=== PATIENT | female | born 1965 | race Caucasian/White ===

== ENCOUNTER → 2016-12-20 | Outpatient (CLI) | payer OTHER ==
[~2016-12-20] VITALS: Ht 167.6 cm; Wt 106.6 kg
[~2016-12-20] MED LIST: ADULT LOW DOSE81 MG PO; AMBIEN 10 MG TA10 MG PO; AMBIEN 5 MG TABL5 M1 PO; BACLOFEN 10 MG10 MG PO; CO Q-1010 MG PO; DILAUDID 4 MG TA4 M1 PO; FISHOIL PO; FLEXERIL PO; FLUOXETINE HCL20 M1 PO; IBUPROFEN200 M2 PO; LYRICA 50 MG50 MG PO; METHADONE HCL 110 M1 GT; METHADONE HCL 110 M1 PO; MULTIVITAMINS; OXYCODONE-ACET1 EAC2 PO; PROZAC 20 MG20 M1 PO; PROZAC 20 MG20 MG PO; TEGRETOL XR100 MG PO; VITAMIN D 5050000 I1 PO; VITAMIN D1000 UNI1 PO; VITAMINC500 PO
--- NOTE | ~2016-12-20 | HPC ---
[facility] [place] [address] PAIN MANAGEMENT CONSULTATION Name: VERONICA DOUGLAS Room #: REG GEOVANI Simpson.#: [id number] Admission: 12/20/16 Attend Phys: Pranav Wilkinson MD Discharge: Date of : 69 Report #: [id number] THIS REPORT FOR: //name// CC: Zohaib Wilkinson DATE OF SERVICE: 12/20/2016 Followup visit for left arm pain, exacerbation of chronic complex regional pain syndrome type 1. The patient presents back to the pain clinic today one week after her last visit crying. She has had 10/10 pain going off of methadone. Little did we realize, to relieve it, providing her even at low dose. This is the worst I have seen her in pain for some time back to the date when her periodic crisis were developed. She knows of no other specific injuries other than hitting her shoulder, which may have triggered her increased and sympathetic symptoms. Currently, she scores her pain as a 9-10, burning, radiates through the left arm all the way up through the shoulder. The arm is read. It is in a [id number] position. PHYSICAL EXAMINATION: VITAL SIGNS: Blood pressure 131/84, heart rate 98. BMI 37.9. GENERAL: The patient is anxious, crying and tearful. EXTREMITIES: Examination of the left arm reveals diffuse allodynia from the shoulder down into the fingers. The arm is cool to the touch. It is red and irritated throughout. 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 The hand is held in a claw position. IMPRESSION: 1. Complex regional pain syndrome type 1, with recent exacerbation. 2. Management of high-risk medication. 3. Depression and anxiety. PLAN: 1. Renew methadone. She has been on 10 mg b.i.d. in the past. I am starting her back on that dose today. She should be able to go back on it without the titration, given her previous use. 2. Return to the pain clinic for sympathetic nerve block. I will perform a left stellate ganglion block under fluoroscopic guidance in another day or two if she is not improving. [facility] [address] [place] [address] PAIN MANAGEMENT CONSULTATION Name: VERONICA DUOGLAS Room #: REG [facility] Calvin.#: [id number] Admission: 12/20/16 Attend Phys: Pranav Wilkinson MD Discharge: Date of : 69 Report #: [id number] Followup visit planned in 48 hours pending insurance authorization. By: [id number] Pranav Wilkinson MD /nt
== END | disposition home or self-care (01) ==
LOC: PAIN 07:05
DX: G90.50 Complex regional pain syndrome I, unspecified (principal); F32.9 Major depressive disorder, single episode, unspecified; F41.9 Anxiety disorder, unspecified

== ENCOUNTER → 2016-12-30 | Outpatient (CLI) | payer OTHER ==
[~2016-12-30] VITALS: Ht 167.6 cm; Wt 108.0 kg
[~2016-12-30] MED LIST changes: +HYDROCODON-ACE1 EAC7 PO
--- NOTE | ~2016-12-30 | P ---
[facility] [place] [address] [place] [address] PROCEDURE REPORT Name: VERONICA DOUGLAS Room #: REG KELLYAdarsh Gill#: [id number] Admission: 12/30/16 Attend Phys: Brock Arora DO Discharge: Date of : 69 Report #: [id number] THIS REPORT FOR: //name// CC: Zohaib Arora HISTORY OF PRESENT ILLNESS: The patient is a 51-year-old female with long treated by Dr. Pranav Wilkinson for CRPS left upper extremity neuropathic pain requiring complex medication management. Last seen by Dr. Wilkinson 10 days ago 12/20/2016. She was scheduled for left stellate ganglion block today. She presents to pain clinic today for this injection. She notes medication changes were not afforded significant improvement. I believe she is taking methadone 10 mg b.i.d. She is requesting to go back to her hydromorphone. I suggested that we will do the injection today and have her follow up with Dr. Pranav Wilkinson for medication management. If we changed medicines and do the block we would not know which gives her better relief. The patient rates her subjective pain score high and vital signs are stable as noted in the EMR. Does have hyperpathia, allodynia left upper extremity. ASSESSMENT: CRPS left upper extremity, neuropathic pain requiring complex medication management. PROCEDURE: Left stellate ganglion block under fluoroscopy. PROCEDURE NOTE: After written informed consent was obtained, the patient taken to fluoroscopy suite, placed in supine position. Skin overlying the left-sided neck was cleansed with ChloraPrep. Skin wheal with Xylocaine was raised. A 20-gauge stellate ganglion needle was placed to contact the anterior portion of the left C6 vertebral body. Negative aspiration was accomplished, 1 mL of Omnipaque was injected, which showed spread within the anterior to [place] tubercle. This was followed with 4 mL of 0.5% preservative-free bupivacaine plus 4 mL of 1-1/2% preservative-free Xylocaine with 1:200,000 epinephrine +4 mg of Decadron. [place] removed. The area was cleansed, Band-Aids applied. The patient monitored for an appropriate period of time, developed on the left side. Discharged in good and stable condition and follow up with Dr. Pranav Wilkinson 3 days. The patient was cautioned about aspiration for the next several hours due to partial denervation of the epiglottis. By: [id number] Brock Arora DO /nt
[2016-12-30 09:49] VITALS: BP 135/76
== END ==
LOC: PAIN 06:54
DX: G90.512 Complex regional pain syndrome I of left upper limb (principal); R20.8 Other disturbances of skin sensation; F10.21 Alcohol dependence, in remission

== ENCOUNTER → 2017-01-02 | Outpatient (CLI) | payer OTHER ==
[~2017-01-02] VITALS: Ht 167.6 cm; Wt 109.3 kg
--- NOTE | ~2017-01-02 | HPC ---
[facility] [place] [address] [place] [address] PAIN MANAGEMENT CONSULTATION Name: VERONICA DOUGLAS Room #: REG GEOVANI MAnniaOsvaldo.#: [id number] Admission: 01/02/17 Attend Phys: Pranav Wilkinson MD Discharge: Date of : 69 Report #: [id number] THIS REPORT FOR: //name// CC: Zohaib Wilkinson DATE OF SERVICE: 01/02/2017 Follow up visit for chronic regional pain syndrome. The patient returns to pain clinic in followup. I was to provide her with a stellate ganglion block, but unfortunately was unable to do so in the time frame that she was hopeful for and she was scheduled with my partner, Dr. Arora on Monday. He performed an excellent block, I looked at the x-ray films and the medication was deposited clearly on the transverse process of C6 on the left. Unfortunately, it did not give much change in her pain. She did not develop a Sandi's syndrome. She returns to pain clinic today once again with severe pain. The arm is red, inflamed, and hyperpathic. There is allodynia, she hold her hand in a claw position. Pain extends all the way from the shoulder to the hand in the classic shoulder hand distribution of complex regional pain syndrome. She holds it in a touch me not physician. She is tearful today due to severity of the pain. She is not currently on a neuropathic pain medicine. She has in the past been on medications, which have been ineffective. I decided today to provide her with some samples of Lyrica 50 mg t.i.d., increasing to 75 mg t.i.d. as we attempt to bring this pain under control. She will take this in combination with hydrocodone 5/325, which we have substituted in place of oxycodone, which causes headaches. She brought in her prescription for that medication today and we . PHYSICAL EXAMINATION: As described above. She is anxious. Blood pressure is 122/87, heart rate 73. Severe sympathetic changes are noted throughout the entire left upper extremity. IMPRESSION: Complex regional pain syndrome type 1, left upper extremity. PLAN: Medication as prescribed above and followup visit for repeat stellate ganglion block once preauthorization was achieved, we will try to get her back as soon as possible. By: [id number] Pranav Wilkinson MD /nt
[2017-01-02 09:56] VITALS: BP 122/87
== END | disposition home or self-care (01) ==
LOC: PAIN 06:39
DX: G90.522 Complex regional pain syndrome I of left lower limb (principal)

== ENCOUNTER → 2017-01-05 | Outpatient (CLI) | payer OTHER ==
[~2017-01-05] VITALS: Ht 167.6 cm; Wt 109.4 kg
--- NOTE | ~2017-01-05 | HPC ---
[facility] [address] [place] [address] PAIN MANAGEMENT CONSULTATION Name: VERONICA DOUGLAS Room #: REG GEOVANI Calvin.#: [id number] Admission: 01/05/17 Attend Phys: Pranav Wilkinson MD Discharge: Date of : 69 Report #: [id number] THIS REPORT FOR: //name// CC: Zohaib Wilkinson DATE OF SERVICE: 01/05/2017 Followup visit for complex regional pain syndrome, left upper extremity. The patient returns to pain clinic today in followup for another stellate ganglion block. She did not get much of a Sandi syndrome with her last injection. Today, I told her that we would repeat the injection with a higher volume of local anesthetic once again under x-ray guidance and I would place the needle in the area of C7 rather than C6. I looked at Dr. Arora's films from his previous injection and our hope is that we can interrupt the sympathetic pain syndrome. I have started her on Lyrica. We are going to titrate that dose up to 225 mg. Reasons for doing so were explained once again and she has samples to do so. I have coupons for her to be able to get a dose of medication at a reasonable rate if the medication helps in addition to her injections. On physical exam, her effect is less anxious today. She was tearful on a couple of occasions. Her arm looks awful. She has hyperpathia. It is purplish in color and she has allodynia from the shoulder to the hand. She holds her hand in a claw position. Her blood pressure is 123/57, heart rate 72. BMI is 38.9. IMPRESSION: 1. Complex regional pain syndrome type 1, left upper extremity, severe. 2. Management of high risk medication. PROCEDURE: Left stellate ganglion block under fluoroscopic guidance. After written consent was obtained, she was taken to the fluoroscopic suite, placed in supine position. Skin over the left neck was prepped with ChloraPrep. Using C-arm guidance, I advanced a 22-gauge needle to contact the C7 transverse process laterally. AP and lateral views were used to confirm location. Aspiration was negative. I injected 2 mL of Omnipaque demonstrating good spread in the cephalad direction and some extension down towards T1. We did not get quite as much as caudad distribution of dye as I had hoped. I took an oblique view as well to confirm that the dye was located anterior to the spinous process. Then I injected a total of 9 mL of solution containing 50/50 make mixture of 0.5% bupivacaine mixed with 1% lidocaine. 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 Arm looked a little bit better in recovery room, but we could [address] [address] PAIN MANAGEMENT CONSULTATION Name: VERONICA DOUGLAS Room #: REG GEOVANI Gill#: [id number] Admission: 01/05/17 Attend Phys: Pranav Wilkinson MD Discharge: Date of : 69 Report #: [id number] not monitor temperatures unfortunately to note if there was a rise. She still had a pain score of about 8 at discharge. We are hopeful that she will see improvement ongoing with both the Lyrica and the injection. I would like her to come back in a week or so for another injection if she sees some improvement with this one. Otherwise, we will stick with Lyrica. By: 1101 [id number] Pranav Wilkinson MD /nt
[2017-01-05 14:04] VITALS: BP 123/57
== END ==
LOC: PAIN 07:10
DX: G90.522 Complex regional pain syndrome I of left lower limb (principal)

== ENCOUNTER → 2017-02-06 | Outpatient (CLI) | payer OTHER ==
[~2017-02-06] VITALS: Ht 170.2 cm; Wt 111.6 kg
[~2017-02-06] MED LIST changes: +DILAUDID4 MG PO; +METHADONE HCL5 MG PO
--- NOTE | ~2017-02-06 | HPC ---
[facility] [place] [address] [place] [address] PAIN MANAGEMENT CONSULTATION Name: VERONICA DOUGLAS Room #: REG GEOVANI MBeka.#: [id number] Admission: 02/06/17 Attend Phys: Pranav Wilkinson MD Discharge: Date of : 69 Report #: [id number] THIS REPORT FOR: //name// CC: Zohaib Wilkinson DATE OF SERVICE: 02/06/2017 Followup visit for complex regional pain syndrome type 1. The patient returns to pain clinic today in tears, the pain remains severe. She has had two stellate ganglion blocks which provided lasting relief. Those were performed under fluoroscopic guidance were felt to be successful based upon findings of Sandi's syndrome. She has had chronic pain well documented throughout this record and I have been taking care for about 20 years. In addition to methadone, which we used for years at 10 mg t.i.d. and hydromorphone 4 mg t.i.d., which seem to be successful. Her only other successful treatment over time was use of lidocaine infusion. I have records that date back into the early 1999s, show that when infuse IV lidocaine, she would develop a substantial improvement for a prolonged period of time. The literature is full of evidence of lidocaine infusions helping individual patients, but it is certainly not a mainline treatment. Because of high dose of lidocaine that was required, I eventually decided against continuing it. We were also seeing decreasing efficacy. I am at a point now where I think that we may need to proceed given her reliance on opioid medication for day to day functioning. Her pain seems to be getting worse and not better over the last several months. Today, she scores her pain as a 10/10, all weather changes are affecting her pain. Pain has really been worse since she fell in November 2016, landing on her left side on concrete. CURRENT MEDICATIONS: Methadone 5 mg 3 times a day, hydrocodone 5/325 q. 6h., zolpidem, Prozac, baclofen, aspirin, and vitamin D. ALLERGIES: SERTRALINE. PHYSICAL EXAMINATION: She is in tears today. Blood pressure 117/75 and heart rate 68. BMI 38.5. Examination of the neck reveals tenderness across the scar from previous neck surgery, spinal cord stimulator placed years ago has been removed. Examination of the shoulder reveals reduced range of motion. She has some difficulty with extension at the elbow. 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 The entire arm is ruborous and red in color. She has diffuse allodynia mottling. Pictures were taken of the arm for the record. IMPRESSION: [facility] [address] [place] [address] PAIN MANAGEMENT CONSULTATION Name: VERONICA DOUGLAS Room #: REG GEOVANI Gill#: [id number] Admission: 02/06/17 Attend Phys: Pranav Wilkinson MD Discharge: Date of : 69 Report #: [id number] 1. Severe complex regional pain syndrome type 1. 2. Management of intractable pain with high risk medication under terms of an opioid agreement. 3. Depression, situational. PLAN: 1. She does not want any more stellate ganglion blocks as they are very expensive and they did not provide lasting relief. I agree completely. I still think it was an appropriate and reasonable step. 2. We discussed lidocaine infusion and willing to perform one if we can get the approval of her insurance company. I suspect that it will be denied due to it is outside of normal care, but we have history that shows that it was beneficial and I will do ____ if necessary. 3. Continue medications under terms of an opioid agreement. RECOMMENDATIONS: Today, I reviewed important issues related to the use of opioids and other potent, centrally-acting medications for the treatment of pain. Rationale for the use of medication is to reduce pain and improve daily activities and function. These activities, individualized for each patient, include simple activities of daily living, improvement in work capabilities, increased involvement in family and other social activities. Improvement in psychosocial elements of chronic pain were discussed in a broader conversation of wellness that included nonpharmacologic measures to manage pain, suffering and efforts to enhance well being. Remaining as physically active as possible for age and ability plays a tremendous role in the management of chronic pain. This was encouraged. We reviewed potential medication side effects, toxicities and drug interactions, employing strategies to manage problems identified. Pain medications have potential side effects, and patients should exercise caution when operating machinery or driving. We discussed in detail the dramatic increase in the Emergency Room visits, hospitalizations and deaths related to misuse and diversion of prescription pain medications in [place]. This opioid crisis in [place] requires both physicians and patients alike to safely use all medications. Safeguarding of medications by keeping them safely locked up or out of reach of others is a critical patient responsibility to ensure that medications are not diverted to others. We discussed the Center for Disease Control (CDC) guidelines for safe use of opioids and the efforts to standardize opioid prescribing to prevent complications. These include guidelines which we strive to meet. They include the standardization of various opioids to morphine milligram equivalents (MME) and also stress the use of the lowest effective dose. Efforts to remain within daily maximum dosing guidelines will also be of focus of treatment. Addiction versus therapeutic use of medication includes routine followup, single prescriber, single pharmacy and the use of random drug screens and other tools to ensure safe prescribing. A signed agreement outlying these issues has been reviewed and remains on the patient chart. Prescriptions were provided today under terms of that agreement, and followup [facility] [address] [place] [address] PAIN MANAGEMENT CONSULTATION Name: VERONICA DOUGLAS Room #: REG CLAdarsh M.Osvaldo.#: [id number] Admission: 02/06/17 Attend Phys: Pranav Wilkinson MD Discharge: Date of : 69 Report #: [id number] for her is planned in 3 months. Followup visit planned in 3 months for medication management or if we can get the approval of her insurance company for lidocaine infusion, I will resume lidocaine infusion with additional boluses. I would be willing to provide her with up to 800-1000 mg of lidocaine over a 6-hour period in the clinic and closely monitor to make sure that there are no side effects. <ELECTRONICALLY SIGNED> By: Pranav Wilkinson MD 02/23/17 1034 [id number] Pranav Wilkinson MD /nt
[2017-02-06 09:18] VITALS: BP 112/75
== END ==
LOC: PAIN 06:55
DX: G90.50 Complex regional pain syndrome I, unspecified (principal); F32.9 Major depressive disorder, single episode, unspecified; Z79.899 Other long term (current) drug therapy; Z88.8 Allergy status to other drugs, medicaments and biological substances

== ENCOUNTER → 2017-03-20 | Outpatient (CLI) | payer OTHER ==
[~2017-03-20] VITALS: Ht 167.6 cm; Wt 108.4 kg
--- NOTE | ~2017-03-20 | HPC ---
[facility] [address] [place] [address] PAIN MANAGEMENT CONSULTATION Name: VERONICA DOUGLAS Room #: REG GEOVANI Calvin.#: [id number] Admission: 03/20/17 Attend Phys: Pranav Wilkinson MD Discharge: Date of : 69 Report #: [id number] THIS REPORT FOR: //name// CC: Zohaib Wilkinson DATE OF SERVICE: 03/20/2017 Followup visit for complex regional pain syndrome, type 1, left upper extremity. The patient has returned to the pain clinic today for a lidocaine infusion. She has been out of control with pain over the course of the last 4 to 6 months despite the use of medications, methadone and hydrocodone. The record will reflect that we first met her we performed lidocaine infusions with good success. We stopped doing them after a period of time and there were also not reimbursable. Also, felt that there were other psychosocial factors that were worsening her pain and we tried to approach the pain from that direction. She really did pretty well over the course of several years, but since the pain has worsened and she has been in our office in tears on more than one occasion, I have elected to pursue another lidocaine infusion and have had it approved and agreed to by the insurance company. We have done this typically by providing a loading dose of 200 mg of lidocaine over about 20 to 30 minutes and then running an infusion of 60 mg of lidocaine per hour for 4 to 6 hours. During this time she has been in the clinic, resting in a lounge chair under continuous monitoring with EKG and pulse oximetry, there have been no untoward effects. Today, she presents to the pain clinic saying that her pain is a 10/10. She holds her hand in a claw-like contracture. She has light touch allodynia throughout the arm ____ and red all the way up into the deltoid. She has restricted movement in the elbow and wrist as well. VITAL SIGNS: Blood pressure is 119/65, heart rate is 66 and BMI is 38.6. IMPRESSION: Complex regional pain syndrome, type 1. PLAN: Lidocaine infusion over 6 hours. An IV was started at 07:45 in the morning. We bolused her at that point in time with 20 mL of lidocaine. She was then placed on the infusion which ran continuously through noon. Pain score had drop from a 10 to a 5. There were marked changes in her hand. She was able to open her fingers, but still had some light touch allodynia; we elected therefore to rerun the infusion for an additional 2 hours until 2:00 in the afternoon. At that time, her pain score was down to 2-1/2 to 3. 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 Light touch allodynia was gone. The hand appeared normal, almost very similar to the right hand. [address] [address] PAIN MANAGEMENT CONSULTATION Name: VERONICA DOUGLAS Room #: REG [facility] Patrice.Osvaldo.#: [id number] Admission: 03/20/17 Attend Phys: Pranav Wilkinson MD Discharge: Date of : 69 Report #: [id number] She was then observed in the clinic for about 30 minutes after the IV was removed. She was able to walk, fine motor skills were performed and there was no slurring of speech. We elected then to discharge her to her family and she is to call back in a week or two to give us a feedback. We may consider repeating the injection in 1 month. We have done these in the past in sequence oftentimes providing a longer duration of response. We will see how this works, but clearly today we have interrupted the pain cycle in the sympathetic innervation. By: [id number] Pranav Wilkinson MD /nt
[2017-03-20 07:26] VITALS: BP 119/65
== END ==
LOC: PAIN 06:46
DX: G90.512 Complex regional pain syndrome I of left upper limb (principal)

== ENCOUNTER → 2017-04-17 | Outpatient (CLI) | payer OTHER ==
[~2017-04-17] VITALS: Ht 170.2 cm; Wt 109.8 kg
[2017-04-17 08:21] VITALS: BP 121/73
== END | disposition home or self-care (01) ==
LOC: PAIN 06:32
DX: G90.512 Complex regional pain syndrome I of left upper limb (principal); Z79.82 Long term (current) use of aspirin; Z88.8 Allergy status to other drugs, medicaments and biological substances; Z98.890 Other specified postprocedural states

== ENCOUNTER → 2018-01-04 | Outpatient (CLI) | payer OTHER ==
[~2018-01-04] VITALS: Ht 170.2 cm; Wt 113.1 kg
[~2018-01-04] MED LIST changes: +ALEVE220 MG PO; +BACLOFEN 10MG T10 MG PO; +FISH OIL 1,001000 M2 PO; +NON-ASPIRIN EX500 M1 PO; +PENICILLIN V P500 MG PO; +PROBIOTIC1 EAC1 PO; +UNICOMPLEX M TA1 TA1 PO
--- NOTE | ~2018-01-04 | HPC ---
[facility] [address] [place] [address] PAIN MANAGEMENT CONSULTATION Name: VERONICA DOUGLAS Room #: REG GEOVANI M.R.#: [id number] Admission: 01/04/18 Attend Phys: Pranav Wilkinson MD Discharge: Date of : 69 Report #: [id number] THIS REPORT FOR: //name// CC: Zohaib Wilkinson DATE OF SERVICE: 01/04/2018 Followup visit for complex regional pain syndrome, upper extremity. The patient returns to pain clinic today for renewal of her medication. She is doing fairly well. She has had no hospitalizations, no new changes in her medical history, no visits to the doctor. She continues on hydromorphone, but has reduced her dose to one 4 mg tablet daily. She also takes methadone also at a reduced dose, now down to one 10 mg tablet daily. Prozac is taken for pain and depression, Ambien for sleep. I provide all these medications for her. I have renewed them with release prescriptions for opioids at 4 and 8 weeks. It should be noted that I provided a higher dose of hydromorphone for her third prescription, which will occur around the time of 03/07/2018 when she is having a knee replacement. This will help manage her postoperative pain and I have instructed to let her surgeon know that we will provide the medication. A regional technique may be advisable with her history of complex regional pain syndrome of the upper extremity. We discussed the possibility of a future lidocaine infusion. Please see that her response to these is very favorable on her record. It has been opioid sparing. PHYSICAL EXAMINATION: Pleasant, alert and oriented, without signs of depression or anxiety. Blood pressure 122/71, heart rate 70, respirations 16. BMI is 39.1. Examination of the left upper extremity reveals cool and discolored hand. It is held in a clawed position. She has pain bilaterally in the knees with localized tenderness. IMPRESSION: 1. Complex regional pain syndrome, left upper extremity. 2. Osteoarthritis, bilateral knee with plan for upcoming replacement of the left knee in 2 months. 3. Management of high risk medications under our terms of a written opioid agreement. Her current daily use of methadone at one tablet is equivalent to 40 and 1-2 tablets of hydromorphone averaging one 4 mg tablet equates to 16; this is an MME of 56. We will continue to stress the lowest effective dose. It has been over a year since a drug screen was performed [place] [address] PAIN MANAGEMENT CONSULTATION Name: VERONICA DOUGLAS Room #: REG CLI Calvin.#: [id number] Admission: 01/04/18 Attend Phys: Pranav Wilkinson MD Discharge: Date of : 69 Report #: [id number] ordered. I plan to see her back in 3 months, which should be shortly after her knee surgery. I will help with postoperative management. <ELECTRONICALLY SIGNED> By: Pranav Wilkinson MD 01/08/18 1408 [id number] Pranav Wilkinson MD /nt
[2018-01-04 11:18] VITALS: BP 122/71
== END ==
LOC: PAIN 07:25
DX: G90.512 Complex regional pain syndrome I of left upper limb (principal); M17.0 Bilateral primary osteoarthritis of knee; F11.90 Opioid use, unspecified, uncomplicated

== ENCOUNTER → 2018-04-12 | Outpatient (CLI) | payer OTHER ==
[~2018-04-12] VITALS: Ht 167.6 cm; Wt 112.0 kg
--- NOTE | ~2018-04-12 | HPC ---
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 She also has osteoarthritis affecting bilateral knees. She has been stable on moderate dose opiate including methadone 10 mg at bedtime and hydromorphone 4 mg 1 tablet daily. Equates to about 56 mg of morphine equivalent daily. She did have a left total knee arthroplasty about 5 weeks ago. She has continued with 1 methadone a day but did increase her hydromorphone to about 3-4 a day down to about 2-3 a day. She was concerned that she is developing some burning dysesthesia at the left knee surgical site, some neuropathic pain component. She was concerned that RSD may be spreading but actually, it appears that that component seems to be resolving. She is planning on getting a right total knee arthroplasty done in June. She has worked hard with physical therapy. She has about 124 degrees flexion on that left knee. She was applauded for her efforts. Notes her pain intensity is 1 on a VAS in her arm, 3-4 in her knee. PHYSICAL EXAMINATION: Otherwise shows pleasant 53-year-old female, BMI is 39.9 kg/m2. Blood pressure is 132/89, pulse 86, respirations are 14. Alert and oriented to person, place and time, judged to be a reasonable historian. Left upper extremity a little erythematous. Rises from chair using armrest. Gait is actually fairly tandem belying recent left total knee arthroplasty and right knee OA. We reviewed the fact that opiate medications are being used to provide analgesia adequate to support activities of daily living, not attempting to achieve a specific pain score on the 0-10 Visual Analog Scale. The current opiate medications are providing sufficient analgesia to allow the patient to participate in activities of daily living. The patient is not exhibiting any aberrant behavior suggestive of drug diversion. The patient is not having any adverse reactions to medications. The patient is not suffering from daytime somnolence or mental acuity changes. The patient is managing opiate-induced constipation with appropriate nsib-peo-tlovhst agents and dietary [address] [address] PAIN MANAGEMENT CONSULTATION Name: VERONICA DOUGLAS Room #: REG CLI Bridget#: [id number] Admission: 04/12/18 Attend Phys: Brock Arora DO Discharge: Date of : 69 Report #: [id number] considerations. The patient was counseled on concern for caution with operating a motor vehicle while using opiate medications. A physical exam was performed and the patient's functional status was evaluated. All patients with back pain were advised against the bed rest greater than 4 days and were advised to return to normal activities. Pain score assessment was noted and the treatment plan was reviewed with the patient. All current medications, both prescribed and OTC were reviewed and reconciled on the electronic medical record. Tobacco screening was accomplished and smoking cessation was advised when indicated. BMI was noted and diet/exercise modification was recommended for all patients following outside normal parameters. I reviewed with the patient today their responsibilities to safeguard prescription medications, reviewed their responsibility to utilize medications only as prescribed by the physician. They are to seek and receive pain medications only from 1 physician group ( [facility]). They are to use 1 pharmacy and keep the clinic informed if they change pharmacies. Their responsibilities include making followup visits in a timely fashion and to avoid abrupt discontinuation of medication usage. Their responsibilities further include bringing their medications (bottles from the pharmacy with residual pills) to the visit for possible confirmation of pill counts and the patient understands it is their responsibility to submit to random drug screens to ensure both that the medications prescribed are present, and that no other controlled substances are present. All prescriptions provided today were generated electronically. ASSESSMENT: Neuropathic pain, left upper extremity; osteoarthritis affecting right knee, status post left total knee arthroplasty. RECOMMENDATIONS: Continue methadone 10 mg at bedtime. I have taken the liberty of writing for 2 prescriptions, a release today and in 4 weeks. Initial hydromorphone prescription is for 90 tablets, 1 up to t.i.d. for postoperative pain. The 4-week release hydromorphone is back to simply 30 tablets, 1 tablet as needed for pain. Discharged in good and stable condition. Follow up with Dr. Pranav Wilkinson in 2 months. <ELECTRONICALLY SIGNED> By: Brock Arora DO 04/13/18 0829 1525 1744 Brock Arora DO /nt
[2018-04-12 12:32] VITALS: BP 132/89
== END ==
LOC: PAIN 08:30
DX: M17.11 Unilateral primary osteoarthritis, right knee (principal); M79.2 Neuralgia and neuritis, unspecified; M25.512 Pain in left shoulder; Z96.652 Presence of left artificial knee joint

== ENCOUNTER → 2018-09-21 | Outpatient (CLI) | payer OTHER ==
[~2018-09-21] VITALS: Ht 167.6 cm; Wt 109.8 kg
[~2018-09-21] MED LIST changes: +PROZAC20 MG PO
--- NOTE | ~2018-09-21 | HPC ---
[facility] [place] [address] [place] [address] PAIN MANAGEMENT CONSULTATION Name: VERONICA DOUGLAS Room #: REG GEOVANI Calvin.#: [id number] Admission: 09/21/18 Attend Phys: Pranav Wilkinson MD Discharge: Date of : 69 Report #: [id number] THIS REPORT FOR: //name// CC: Zohaib Wilkinson DATE OF SERVICE: 09/21/2018 CHIEF COMPLAINT: Left arm pain, complex regional pain syndrome. HISTORY OF PRESENT ILLNESS: The patient returns to the clinic today for renewal of her chronic medication. She has been a patient of mine fairly continuously since 2003. She has longstanding left arm pain consistent with complex regional pain syndrome. We have had a number of treatments over the years but over the course of the last 2-3 years, she has been managed very effectively with medication. I provided with methadone 30 mg 30 tablets per month along with hydromorphone 4 mg 30 tablets per month. Her morphine milligram equivalency with this dose is 30 MME. She takes her methadone generally one half tablet in the morning and evening and the hydromorphone only on a severe episode when she needs it as a booster. She denies any side effects and is grateful for the good pain relief that she receives. She enjoys gardening and other activities, which she could not do without the medication, she reports. PHYSICAL EXAMINATION: GENERAL: She is pleasant, alert and oriented, without any signs of depression or anxiety. She scores her pain today is a 2. VITAL SIGNS: Blood pressure is 119/69, heart rate 63, respirations 14 and BMI is 39. MUSCULOSKELETAL: She has some discoloration of the left arm into the hand that she holds it in a claw-like position. Minimal allodynia is noted. She has minimal as400 operator strength. IMPRESSION: 1. Complex regional pain syndrome type 1, stable. 2. Osteoarthritis, bilateral knees, status post left knee arthroplasty. 3. Management of high risk medications under terms of an opioid agreement. PLAN: I renewed her hydromorphone and methadone under terms of an opioid agreement. She has promised me that she is carefully safeguards her medication, [facility] [address] [place] [address] PAIN MANAGEMENT CONSULTATION Name: VERONICA DOUGLAS [id number] Admission: 09/21/18 Attend Phys: Pranav Wilkinson MD Discharge: Date of : 69 Report #: [id number] particularly with children in the home. We plan to follow up in 3-month intervals. By: [id number] Pranav Wilkinson MD /nt
[2018-09-21 10:30] VITALS: BP 119/69
== END ==
LOC: PAIN 09:57
DX: G90.50 Complex regional pain syndrome I, unspecified (principal); M17.0 Bilateral primary osteoarthritis of knee; Z79.891 Long term (current) use of opiate analgesic

== ENCOUNTER → 2018-12-24 | Outpatient (CLI) | payer OTHER ==
[~2018-12-24] VITALS: Ht 167.6 cm; Wt 116.8 kg
[2018-12-24 15:07] VITALS: BP 113/61
--- NOTE | 2018-12-24 15:09 | NUR ---
Pain Clinic Assessment: 1. History of Osteoarthritis: SPINE History of Rheumatoid Arthritis: 2. Height: 5 ft. 6 in. 167.6 cm. Weight: 257.6 lb. oz. 116.847 kg. Patient's BMI: 41.6 3. Vital Signs: BP: 113/61 Pulse: 68 Resp: 16 Temp: 02 Sat: 95 ECG Mon: 4. Pain Intensity: 3 5. Fall Risk: Dizziness: N Needs help standing or walking: N Fallen in the last 3 months: N Fall risk comments: 6. Patient on Blood Thinner: None 7. History of Hypertension: N 8. Opioid Therapy greater than 6 weeks: Y Opiate Contract Signed: 02/06/17 9. Risk Assessment Tool Provided: LOW 10. Functional Assessment Tool: 26 11. Recreational Drug Use: Never Drug Type: Tobacco Use: Never Smoker Tobacco Type: Amount or Packs/day: How Many Years: Alcohol Use: Yes Frequency: Special Occasions Quant:
--- NOTE | 2018-12-26 15:29 | HPC ---
[facility] [place] [address] [place] [address] PAIN MANAGEMENT CONSULTATION Name: VERONICA DOUGLAS Room #: REG GEOVANI Calvin.#: [id number] Admission: 12/24/18 ������������������ Attend Phys: Pranav Wilkinson MD Discharge: ������������������ Date of : 69 Report #: [id number] THIS REPORT FOR: //name// CC: Zohaib Wilkinson DATE OF SERVICE: 12/24/2018 Followup visit for complex regional pain syndrome, left upper extremity. The patient returns to the pain clinic today for renewal of her medications. She has been a longstanding patient of our clinic and is currently at a 46 MME of methadone in combination with breakthrough hydromorphone. She takes methadone 5 mg twice daily for a total of 10 equaling 30 MME and uses one hydromorphone for breakthrough on average per day. She is provided 30 tablets per month and with this is able to manage her pain effectively. This calculates to 46 by the additional 16 MME of hydromorphone per day. We discussed the opioid issues that currently are important in managing pain carefully. She safeguards her medication. She improves daily her function with the use of medication and she carefully safeguards her medication. We have checked her use of medication through the prescription drug monitoring program from [place] and there are no unexpected entries. Drug screens have been performed periodically. Other co-analgesics include the antidepressant Prozac 20 mg daily and Ambien 10 mg, which she uses to help with sleep at night. This is important not only for her energy during the day and her mood, but also for her pain. PHYSICAL EXAMINATION: She is pleasant. Her blood pressure today is 113/61, heart rate 68 and respirations 16. Her left arm is held in a touch me not position. Her hand is in a typical claw position. She has no significant allodynia, but there is reddish color to the arm. Changes in her hair growth are noted. IMPRESSION: 1. Complex regional pain syndrome type 1. Left arm is markedly affected diffusely. 2. Osteoarthritis, status post left knee arthroplasty. 3. Management of high risk medication under terms of written opioid agreement. PLAN: I renewed her methadone 10 mg, 30 tablets and hydromorphone 4 mg, 30 tablets per month. Released prescriptions at 4 and 8 weeks were also provided [address] [address] PAIN MANAGEMENT CONSULTATION Name: VERONICA DOUGLAS Room #: REG GEOVANI Gill#: [id number] Admission: 12/24/18 ������������������ Attend Phys: Pranav Wilkinson MD Discharge: ������������������ Date of : 69 Report #: [id number] under terms of our agreement. I will see her back in the pain clinic in 3 months. ��������������������������������������������� <ELECTRONICALLY SIGNED> ���������������������������������������� By: Pranav Wilkinson MD ��������������������������������������������� 12/26/18 1529 1711 0518 Pranav Wilkinson MD /nt
== END ==
LOC: PAIN 07:02
DX: G90.512 Complex regional pain syndrome I of left upper limb (principal); M19.90 Unspecified osteoarthritis, unspecified site; Z96.652 Presence of left artificial knee joint; Z79.891 Long term (current) use of opiate analgesic; Z79.899 Other long term (current) drug therapy

== ENCOUNTER → 2019-07-11 | Outpatient (CLI) | payer OTHER ==
[~2019-07-11] VITALS: Ht 167.6 cm; Wt 117.3 kg
--- NOTE | ~2019-07-11 | HPC ---
[facility] [place] [place] [address] PAIN MANAGEMENT CONSULTATION Name: VERONICA DOUGLAS Room #: REG GEOVANI Calvin.#: [id number] Admission: 07/11/19 Attend Phys: Pranav Wilkinson MD Discharge: Date of : 69 Report #: [id number] THIS REPORT FOR: //name// CC: YUMI Wilkinson DATE OF SERVICE: 07/11/2019 REASON FOR VISIT: Followup visit for complex regional pain syndrome, left upper extremity. HISTORY OF PRESENT ILLNESS: The patient is a longstanding patient. I first began caring for her in 1996. She has been suffering with complex regional pain syndrome for nearly 2 decades. Her treatments have involved both lidocaine infusions, which have been helpful and medication management in our clinic. Prior to coming to us, she had a spinal cord stimulator, which did not provide relief and has been since removed. Her pain is intermittent. She has days where it is pretty good and days where it is not. When it is severe, it is very bad and she comes today complaining of quite severe pain. Her pain score is an 8, it can improve with medication. She was taking medication carefully over the course of many years without signs of misuse, abuse or addiction. We discussed the use of opioids as a medicine. She does not take them as a drug. Medication predictably reduces her pain and she denies side effects other than mild constipation. She remains active. She has 2 daughters, both of whom are now out of the home. She is just going through the empty nest syndrome for the first few months and seems to be adapting well. 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 Medication allows her to do so, she reports. When the pain is severe and radiating down her arm, she has trophic changes and she holds her left arm in a claw. She has diffuse erythema. She presents with this today. PHYSICAL EXAMINATION: GENERAL: She is 5 feet 6 inches, 258 pounds, BMI is 41.8. VITAL SIGNS: Blood pressure 129/75, heart rate 64, respirations 16, O2 sat 97. Pain intensity 8/10. CHEST: Clear. CARDIAC: Rhythm is regular. Examination of the left arm reveals hyperemic red arm that extends all the way from the hand up to her deltoid region. Changes in hair growth are once again noted on her left arm more significant than on her [address] [address] PAIN MANAGEMENT CONSULTATION Name: VERONICA DOUGLAS Room #: REG [facility] Calvin.#: [id number] Admission: 07/11/19 Attend Phys: Pranav Wilkinson MD Discharge: Date of : 69 Report #: [id number] right. She has only mild allodynia. She holds her hand in a claw. She has difficulty opening or extending her fingers. IMPRESSION: 1. Chronic complex regional pain syndrome type 1, left upper extremity. 2. History of osteoarthritis, left knee, status post arthroplasty. 3. Management of high risk medications under opioid agreement. She has done well with a combination of methadone 5 mg b.i.d. or taking 10 mg once a day and hydromorphone 4 mg taken just once a day as needed for breakthrough episodes or when there is severe pain. She has managed these medications carefully and safely. Urine drug screens were reviewed from the past and I will continue to perform them on a p.r.n. basis. I have also reviewed the prescription drug monitoring program and there are no unexpected entries. She is at low risk for addiction. Followup visit scheduled in 3 months. I have renewed her medications under terms of our written opioid agreement. By: [id number] Pranav Wilkinson MD /nt
[2019-07-11 09:20] VITALS: BP 129/75
--- NOTE | 2019-07-11 09:35 | NUR ---
Pain Clinic Assessment: 1. History of Osteoarthritis: SPINE History of Rheumatoid Arthritis: 2. Height: 5 ft. 6 in. 167.6 cm. Weight: 258.6 lb. oz. 117.300 kg. Patient's BMI: 41.8 3. Vital Signs: BP: 129/75 Pulse: 64 Resp: 16 Temp: 02 Sat: 97 ECG Mon: 4. Pain Intensity: 8 5. Fall Risk: Dizziness: N Needs help standing or walking: N Fallen in the last 3 months: N Fall risk comments: 6. Patient on Blood Thinner: None 7. History of Hypertension: N 8. Opioid Therapy greater than 6 weeks: Y Opiate Contract Signed: 02/06/17 9. Risk Assessment Tool Provided: LOW 10. Functional Assessment Tool: 11. Recreational Drug Use: Never Drug Type: Tobacco Use: Never Smoker Tobacco Type: Amount or Packs/day: How Many Years: Alcohol Use: Yes Frequency: Quant:
== END ==
LOC: PAIN 06:50
DX: G89.4 Chronic pain syndrome (principal); M17.12 Unilateral primary osteoarthritis, left knee; Z79.891 Long term (current) use of opiate analgesic

== ENCOUNTER → 2019-09-19 | Outpatient (CLI) | payer OTHER ==
[~2019-09-19] VITALS: Ht 162.6 cm; Wt 111.1 kg
[2019-09-19 07:45] VITALS: BP 125/69
--- NOTE | 2019-09-19 07:53 | NUR ---
Pain Clinic Assessment: 1. History of Osteoarthritis: SPINE History of Rheumatoid Arthritis: NONE 2. Height: 5 ft. 4 in. 162.6 cm. Weight: 245.0 lb. oz. 111.132 kg. Patient's BMI: 42.0 3. Vital Signs: BP: 125/69 Pulse: 62 Resp: 18 Temp: 02 Sat: 98 ECG Mon: 4. Pain Intensity: 8-9 TODAY 5. Fall Risk: Dizziness: N Needs help standing or walking: N Fallen in the last 3 months: N Fall risk comments: 6. Patient on Blood Thinner: None 7. History of Hypertension: N 8. Opioid Therapy greater than 6 weeks: Y Opiate Contract Signed: 02/06/17 9. Risk Assessment Tool Provided: LOW 10. Functional Assessment Tool: 11. Recreational Drug Use: Never Drug Type: Z Tobacco Use: Never Smoker Tobacco Type: Amount or Packs/day: How Many Years: Alcohol Use: Yes Frequency: Quant:
--- NOTE | 2019-09-30 12:20 | HPC ---
[facility] [place] [place] [address] PAIN MANAGEMENT CONSULTATION Name: VERONICA DOUGLAS Room #: REG GEOVANI Calvin.#: [id number] Admission: 09/19/19 Attend Phys: Pranav Wilkinson MD Discharge: Date of : 69 Report #: [id number] THIS REPORT FOR: //name// CC: Zohaib Wilkinson DATE OF SERVICE: 09/19/2019 Followup visit for complex regional pain syndrome, left upper extremity. The patient is here today for a lidocaine infusion. This is a treatment that she has had dating back over 10 years when she first began receiving injections in [place]. She came to us in [place] reporting dramatic improvements following lidocaine infusion, and we have continued those intermittently off and on over several years. We have tried other alternative treatments as well. Prior to coming to [place], she had failed spinal cord stimulator treatments. She is on medications, which we provide for her under terms of written opioid agreement. Those medications have been renewed for her recently at a separate office visit. We reviewed her medications briefly today. She is here today specifically for a lidocaine infusion. Out of interest, I looked back in her records. The first lidocaine infusion was performed on 06/09/2002. It was repeated several times over the course of next several years, then we have a period of time when we did not do it. She now is here today reporting that she gets 4-6 months of good pain relief following infusions. We have done it cautiously and carefully by bolusing first followed by a slower infusion over a course of 6-7 hours. She received an injection today for nearly 6 hours. Otherwise, her health is good. She denies other medical problems at this time. 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 When the pain becomes severe, she has significant color changes, allodynia and her hand is held in a claw position. She has some trophic changes. PHYSICAL EXAMINATION: GENERAL: Today, a pleasant female. VITAL SIGNS: Blood pressure 125/69, heart rate 62, respirations 16, O2 sat 98. NEUROLOGIC: She is pleasant, alert and oriented with no signs of depression, anxiety or overmedication. MUSCULOSKELETAL: Examination of the affected left upper extremity reveals allodynia in the forearm and the hand. Her hand is held in a claw position. [address] [address] PAIN MANAGEMENT CONSULTATION Name: VERONICA DOUGLAS Room #: REG GEOVANI Simpson.#: [id number] Admission: 09/19/19 Attend Phys: Pranav Wilkinson MD Discharge: Date of : 69 Report #: [id number] She cannot straighten her fingers. 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 Biceps and triceps strength seems to be adequate. IMPRESSION: Complex regional pain syndrome, left upper extremity. PLAN: Lidocaine infusion. PROCEDURE: After informed consent, an IV was placed in the right upper extremity. We began our infusion with a 200 mg bolus over 30 minutes. This was followed then by an additional 100 mg over the next 30 minutes. We followed with a 60-mg infusion per hour over the course of the next 6 hours. Her total infusion was roughly 660 mg of lidocaine over the course of 6 hours. During the course of her treatment, her vital signs were stable. She shows no signs of even early lidocaine toxicity. No tremor, nystagmus. No perioral numbness. No dysarthria. She was given 1 g of midazolam 5 hours into her treatment in order to increase seizure threshold. There was no evidence of such an event. Her pain score at the conclusion of her treatment was 2. There was noticeable difference in her hand. There was less allodynia. She was able to tribal council member and fully open her fingers. Followup visit is planned as needed for further lidocaine infusions. <ELECTRONICALLY SIGNED> By: Pranav Wilkinson MD 09/30/19 1220 1701 0060 Pranav Wilkinson MD /nt
== END ==
LOC: PAIN 07-29 06:46
DX: G90.50 Complex regional pain syndrome I, unspecified (principal)

== ENCOUNTER → 2019-12-12 | Outpatient (CLI) | payer OTHER ==
[~2019-12-12] VITALS: Ht 162.6 cm; Wt 113.3 kg
[~2019-12-12] MED LIST changes: +PROZAC20 M1 PO
[2019-12-12 13:31] VITALS: BP 112/87
--- NOTE | 2019-12-12 13:48 | NUR ---
Pain Clinic Assessment: 1. History of Osteoarthritis: SPINE History of Rheumatoid Arthritis: NONE 2. Height: 5 ft. 4 in. 162.6 cm. Weight: 249.8 lb. oz. 113.309 kg. Patient's BMI: 42.9 3. Vital Signs: BP: 112/87 Pulse: 77 Resp: 14 Temp: 02 Sat: 100 ECG Mon: 4. Pain Intensity: 3 5. Fall Risk: Dizziness: N Needs help standing or walking: N Fallen in the last 3 months: N Fall risk comments: 6. Patient on Blood Thinner: None 7. History of Hypertension: N 8. Opioid Therapy greater than 6 weeks: Y Opiate Contract Signed: 02/06/17 9. Risk Assessment Tool Provided: LOW 10. Functional Assessment Tool: 11. Recreational Drug Use: Never Drug Type: Tobacco Use: Never Smoker Tobacco Type: Amount or Packs/day: How Many Years: Alcohol Use: Yes Frequency: Monthly Quant:
--- NOTE | 2019-12-13 10:10 | HPC ---
[facility] [address] [place] [address] PAIN MANAGEMENT CONSULTATION Name: VERONICA DOUGLAS Room #: REG GEOVANI M.R.#: [id number] Admission: 12/12/19 Attend Phys: Cici Richter Discharge: Date of : 69 Report #: [id number] THIS REPORT FOR: cc: Zohaib Araiza MD, Michael S. MD Hocker,Cici SIMMONS ~ CC: Cici Araiza DATE OF SERVICE: 12/12/2019 CHIEF COMPLAINT: Complex regional pain syndrome, left upper extremity. HISTORY OF PRESENT ILLNESS: This is a very pleasant 54-year-old female who returns to the pain clinic today for refill of her opioid medications that she uses to take with her to help her complex regional pain syndrome in her left upper extremity. She reports that she is doing quite well since her September lidocaine infusion. She feels that that helped at least 80% of her pain and she continues to do quite well since that time, rating her pain score at 3/10 today. She reports when the weather is nice, her pain is decreased as well, which should have been lately. She reports that medications are beneficial as well as heat. She denies any problems with constipation or daytime sleepiness as a result of her medications. She is thankful that the lidocaine infusion worked so well and continues to be a benefit for her. ALLERGIES: ZOLOFT AND MACADAMIA NUT OIL. CURRENT LIST OF MEDICATIONS: Prozac 20 mg daily, methadone 10 mg daily, hydromorphone 4 mg daily, Ambien p.r.n., Tylenol Extra Strength, multivitamin and aspirin. PQRS: 1. She has a history of osteoarthritis in her spine. Denies any rheumatoid arthritis. 2. Height is 5 feet 4 inches, weight is 249, BMI is 42. 3. Vital Signs: 112/87, pulse is 77, respirations 14, oxygen sat is 100. Pain score is 3/10. 4. Fall risk, she denies. She does not need any assistance with walking, has not fallen in the last 3 months. The patient is not on any blood thinners or medicine for hypertension. 5. Her opioid therapy is greater than 6 weeks; therefore an opioid signed contract is on the chart. 6. Risk assessment tool is low. Functional assessment is 36/70. 7. Recreational drug use, she denies. She is not a smoker and occasionally drinks alcohol. [facility] [address] [place] [address] PAIN MANAGEMENT CONSULTATION Name: VERONICA DOUGLAS Room #: REG KELLYAdarsh Gill#: [id number] Admission: 12/12/19 Attend Phys: Cici Richter Discharge: Date of : 69 Report #: [id number] According to the prescription monitoring system, the patient has been filling appropriately for her medications, filling in a timely fashion. According to the CDC guidelines, her morphine mEq is under 50 MMEs. PHYSICAL EXAMINATION: GENERAL: This is alert and orientated 54-year-old female who is pleasant and upbeat today. No signs of depression or overmedication, placing her current pain score at 3/10 today. HEENT: Normocephalic, atraumatic. Extraocular eye muscles are intact. Mucous membranes are moist. MUSCULOSKELETAL: Her left upper extremity reveals allodynia in the forearm and the hand, hand held in a coil like guarded position. She is able to straighten her fingers without difficulty. Her biceps strength is adequate bilaterally. IMPRESSION: 1. Complex regional pain syndrome. 2. Depression. 3. History of osteoarthritis, left knee, status post arthroscopy. 4. Management of high risk medications under terms of written opioid agreement. PLAN: 1. We discussed treatment options with the patient today. The patient feels that the medication is very beneficial. She is able to function as she would like. She continues to show and travel and visit her children at [employer] 12/03/2019 [employer] games, being quite active. She feels the medication allows her to accomplish this as well as her periodic lidocaine infusions, which she reports she had 70-80% improvement from. 2. Today, we will refill her methadone 10 mg, #30, for 3 months as well as Dilaudid 4 mg, #30, for 3 months, Ambien 10 mg, #30 with 2 additional refills and Prozac 20 mg #90 which is a 3-month supply. These will all be sent electronically to her pharmacy. 3. Dr. Pranav Wilkinson did see patient in collaboration with me today. The patient will return as needed for medication or lidocaine infusion. <ELECTRONICALLY SIGNED> By: Cici Richter 12/13/19 1010 [id number] Cici Richter /avila
== END ==
LOC: PAIN 07:03
DX: G89.4 Chronic pain syndrome (principal); F32.9 Major depressive disorder, single episode, unspecified; Z79.891 Long term (current) use of opiate analgesic; Z79.899 Other long term (current) drug therapy

== ENCOUNTER → 2020-03-19 | Outpatient (CLI) | payer OTHER ==
[~2020-03-19] VITALS: Ht 167.6 cm; Wt 114.8 kg
[2020-03-19 12:37] VITALS: BP 137/90
--- NOTE | 2020-03-19 12:44 | NUR ---
Pain Clinic Assessment: 1. History of Osteoarthritis: SPINE History of Rheumatoid Arthritis: NONE 2. Height: 5 ft. 6 in. 167.6 cm. Weight: 253.0 lb. oz. 114.760 kg. Patient's BMI: 40.9 3. Vital Signs: BP: 137/90 Pulse: 59 Resp: 18 Temp: 02 Sat: 97 ECG Mon: 4. Pain Intensity: 4-5 5. Fall Risk: Dizziness: N Needs help standing or walking: N Fallen in the last 3 months: N Fall risk comments: 6. Patient on Blood Thinner: None 7. History of Hypertension: N 8. Opioid Therapy greater than 6 weeks: Y Opiate Contract Signed: 02/06/17 9. Risk Assessment Tool Provided: LOW 10. Functional Assessment Tool: 11. Recreational Drug Use: Never Drug Type: Tobacco Use: Never Smoker Tobacco Type: Amount or Packs/day: How Many Years: Alcohol Use: Yes Frequency: Quant:
--- NOTE | 2020-03-20 09:02 | HPC ---
[facility] [place] [address] PAIN MANAGEMENT CONSULTATION Name: VERONICA DOUGLAS Room #: REG GEOVANI Patrice.Osvaldo.#: [id number] Admission: 03/19/20 Attend Phys: Cici Richter Discharge: Date of : 69 Report #: [id number] THIS REPORT FOR: cc: Zohaib Araiza MD, Michael S. MD Hocker,Cici SIMMONS ~ CC: Pranav Wilkinson MD DATE OF SERVICE: 03/19/2020 CHIEF COMPLAINT: Complex regional pain syndrome, left upper extremity. HISTORY OF PRESENT ILLNESS: This is a 55-year-old female who is well known to the pain clinic for her ongoing complex regional pain syndrome in her left arm. She continues to need opioid medications to help reduce her pain. 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 Today, she is reporting a pain score 4/5, which is fairly average pain score for her. She is tearful throughout some of our discussion today because during this COVID outbreak her has lost his job; therefore, their insurance and she is trying to be the primary breadwinner and dealing with working more along with her chronic pain issues. She is wondering if we are able to increase her antidepressant medications as well as refill her medications. 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 She feels that heating pads and her medication is very beneficial. She denies any problems with daytime somnolence or constipation as a result of her medications. ALLERGIES: ZOLOFT AND MACADAMIA NUT OIL. CURRENT LIST OF MEDICATIONS: Prozac 20 mg, Ambien 10 mg p.r.n., methadone 10 mg daily, Dilaudid 4 mg daily and multivitamin. PQRS: 1. She has osteoarthritis in her spine. Denies any rheumatoid arthritis. 2. Height is 5 feet 6 inches, weight is 253, BMI is 40. 3. Vital Signs: 137/90, pulse is 59, respirations 18, oxygen sat is 97%. 4. Pain score is 4-5. 5. Denies dizziness, does not need help walking or standing, has not fallen in the last 3 months. 6. The patient is not on any blood thinners or medicine for hypertension. 7. Opiate therapy is greater than 6 weeks; therefore, an opioid signed contract is on the chart. Risk assessment tool is low. Functional assessment is 36/70. 8. Recreational drug use, she denies. She is not a smoker and occasionally drinks alcohol. [address] [address] PAIN MANAGEMENT CONSULTATION Name: VERONICA DOUGLAS Room #: REG [facility] Calvin.#: [id number] Admission: 03/19/20 Attend Phys: Cici Richter Discharge: Date of : 69 Report #: [id number] According to the prescription monitoring system, the patient is filling appropriately for her medications, filling them in a timely fashion or slightly longer than 30 days. Her morphine mEq according to the CDC guidelines is 46 MME per day at the maximum dose. It is probably slightly lower than that since she does take some medications less on good days. There is a urine drug screen on the chart. We will repeat that again in the near future. PHYSICAL EXAMINATION: GENERAL: This is a well-nourished, well-developed 55-year-old female who appears her stated age. She is depressed today and tearful throughout her visit today, rating her pain score 4-5. HEENT: Normocephalic, atraumatic. Extraocular eye muscles are intact. She is wearing a mask. MUSCULOSKELETAL: Her left upper extremity reveals allodynia in the forearm and hand, which is held in a guarded position. Her strength in her upper extremity is adequate bilaterally at 5/5. IMPRESSION: 1. Chronic regional pain syndrome of her left upper extremity. 2. Depression. 3. History of osteoarthritis, status post arthroscopy of the left knee. 4. Management of high risk medications under terms of written opioid agreement. We reviewed the fact that opiate medications are being used to provide analgesia adequate to support activities of daily living, not attempting to achieve a specific pain score on the 0-10 Visual Analog Scale. The current opiate medications are providing sufficient analgesia to allow the patient to participate in activities of daily living. The patient is not exhibiting any aberrant behavior suggestive of drug diversion. The patient is not having any adverse reactions to medications. The patient is not suffering from daytime somnolence or mental acuity changes. The patient is managing opiate-induced constipation with appropriate qxze-mpb-qgvqqev agents and dietary considerations. The patient was counseled on concern for caution with operating a motor vehicle while using opiate medications. PLAN: 1. We discussed treatment options with the patient today. The patient is tearful throughout part of our visit. Throughout this COVID virus, her children have had to come home from college. They have been at home and then her did lose his job at [employer]. 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 We did use [employer] today. She is wondering about increasing her antidepressant medication. I did discuss this with Dr. Pranav Wilkinson, who would like the patient to discuss increase in this particular medication with her primary care doctor, Dr. Araiza. I encouraged the patient to call there for an appointment, [address] [place] [address] PAIN MANAGEMENT CONSULTATION Name: VERONICA DOUGLAS Room #: REG GEOVANI Gill#: [id number] Admission: 03/19/20 Attend Phys: Cici Richter Discharge: Date of : 69 Report #: [id number] but we will refill her existing dose. 2. The patient states that some days she is able to get by with 5 mg of her methadone. Other days, she does require her entire 10 mg dose; therefore, she was able to go slightly longer in between fills. Today, we will send electronically methadone 10 mg, #30, for today for an 8-week release as well as her hydromorphone 4 mg, #30, for today for an 8-week release. 3. We will send electronically her Ambien 10 mg that she takes at bedtime, but not on a nightly basis as well as the Prozac 20 mg 4. The patient will call for an appointment as needed. The patient is seen in collaboration with Dr. Wilkinson. <ELECTRONICALLY SIGNED> By: Cici Richter 03/20/20 0902 [id number] Cici Richter /nt
== END ==
LOC: PAIN 08:17
PROVIDERS: ATTEND Clinical Nurse Specialist Adult Health
DX: M79.605 Pain in left leg (principal); F32.9 Major depressive disorder, single episode, unspecified; F11.20 Opioid dependence, uncomplicated; Z87.39 Personal history of other diseases of the musculoskeletal system and connective tissue; Z88.8 Allergy status to other drugs, medicaments and biological substances; Z79.899 Other long term (current) drug therapy

== ENCOUNTER → 2020-07-02 | Outpatient (CLI) | payer OTHER ==
[~2020-07-02] VITALS: Ht 167.6 cm; Wt 116.6 kg
[~2020-07-02] MED LIST changes: +PROZAC40 MG PO
[2020-07-02 13:43] VITALS: BP 113/84
--- NOTE | 2020-07-02 13:52 | NUR ---
Pain Clinic Assessment: 1. History of Osteoarthritis: SPINE History of Rheumatoid Arthritis: NONE 2. Height: 5 ft. 6 in. 167.6 cm. Weight: 257.0 lb. oz. 116.575 kg. Patient's BMI: 41.5 3. Vital Signs: BP: 113/84 Pulse: 67 Resp: 16 Temp: 02 Sat: 98 ECG Mon: 4. Pain Intensity: 5 5. Fall Risk: Dizziness: N Needs help standing or walking: N Fallen in the last 3 months: N Fall risk comments: 6. Patient on Blood Thinner: None 7. History of Hypertension: N 8. Opioid Therapy greater than 6 weeks: Y Opiate Contract Signed: 02/06/17 9. Risk Assessment Tool Provided: LOW 10. Functional Assessment Tool: 11. Recreational Drug Use: Never Drug Type: Tobacco Use: Never Smoker Tobacco Type: Amount or Packs/day: How Many Years: Alcohol Use: Yes Frequency: Special Occasions Quant: 1-2
--- NOTE | 2020-07-06 07:22 | HPC ---
[facility] [address] [place] [address] PAIN MANAGEMENT CONSULTATION Name: VERONICA DOUGLAS Room #: REG GEOVANI Calvin.#: [id number] Admission: 07/02/20 Attend Phys: Cici Richter Discharge: Date of : 69 Report #: [id number] THIS REPORT FOR: cc: Zohaib Araiza MD, Michael S. MD Hocker,Cici SIMMONS ~ CC: Cici Araiza DATE OF SERVICE: 07/02/2020 CHIEF COMPLAINT: Complex regional pain syndrome, left upper extremity. HISTORY OF PRESENT ILLNESS: This is a pleasant 55-year-old female who returns to the pain clinic today to refill her medications and to discuss her ongoing depression issues. Today, she is reporting a pain score at 5/10. It is mostly located in her left arm and neck. She has been having some left shoulder discomfort. She also reports that she recently burned her thumb area, which causes significant increase in her pain for a while, but it has slowly returned to her normal level at 5/10. It is a burning, shooting pain, worse with colder weather and ice. She feels that heat and her medications have been beneficial. The patient does continue to have issues with her depression. Her has found a job, so she is relieved. She still continues to have no insurance until October, but is thankful that he is employed. Her daughters are both away at college, so it is quiet in the house and she has been on Prozac 20 mg for quite some time, though in the past, she was at elevated levels. She is wondering about a slight increase today. She is tearful through some of our visit. ALLERGIES: ZOLOFT AND MACADAMIA NUT OIL. CURRENT LIST OF MEDICATIONS: Ambien 10 mg at bedtime p.r.n., methadone 10 mg daily, hydromorphone 4 mg p.r.n., Prozac 20 mg, and multivitamin. PQRS: 1. She has osteoarthritis in her spine. Denies any rheumatoid arthritis. 2. Height is 5 feet 6 inches, weight is 257, BMI is 41. 3. Vital signs; blood pressure 113/84, pulse is 67, respirations 16, oxygen sat is 98. 4. Pain score is 5/10. 5. Fall risk. Denies dizziness, does not need help walking or standing, has not fallen in the last 3 months. 6. The patient is not on any blood thinners or medicine for hypertension. 7. Her opioid therapy is greater than 6 weeks; therefore, an opioid signed contract is on the chart. Risk assessment is low. Functional assessment is 36/70. 8. Recreational drug use, she denies. She is not a smoker and occasionally [address] [address] PAIN MANAGEMENT CONSULTATION Name: VERONICA DOUGLAS Room #: REG CLI Bridget#: [id number] Admission: 07/02/20 Attend Phys: Cici Richter Discharge: Date of : 69 Report #: [id number] drinks alcohol. According to the prescription monitoring system, the patient is filling appropriately. Her morphine milliequivalent according to the CDC guidelines if she does take her entire dose of medications is 46, though some days, she does take less medication. There is a drug screen on the chart. We will check this again in the future. PHYSICAL EXAMINATION: GENERAL: This is alert and orientated, slightly depressed 55-year-old female who is rating her pain score at 5/10 today. HEENT: Normocephalic, atraumatic. Extraocular eye muscles are intact. She is wearing a mask. MUSCULOSKELETAL: Her left upper extremity reveals some allodynia in her forearm and hand, does have slight discoloration in her left thumb from recent burn. Her upper extremity strength is symmetrical and equal at 5/5. She has increased pain in her left shoulder with flexion and extension and rotation of her shoulder. IMPRESSION: 1. Chronic regional pain syndrome of her left upper extremity. 2. Depression. 3. History of osteoarthritis, status post arthroscopy of the left knee. 4. Management of high risk medications under terms of written opioid agreement. We reviewed the fact that opiate medications are being used to provide analgesia adequate to support activities of daily living, not attempting to achieve a specific pain score on the 0-10 Visual Analog Scale. The current opiate medications are providing sufficient analgesia to allow the patient to participate in activities of daily living. The patient is not exhibiting any aberrant behavior suggestive of drug diversion. The patient is not having any adverse reactions to medications. The patient is not suffering from daytime somnolence or mental acuity changes. The patient is managing opiate-induced constipation with appropriate fidc-oqq-biciiio agents and dietary considerations. The patient was counseled on concern for caution with operating a motor vehicle while using opiate medications. A physical exam was performed and the patient's functional status was evaluated. All patients with back pain were advised against the bed rest greater than 4 days and were advised to return to normal activities. Pain score assessment was noted and the treatment plan was reviewed with the patient. All current medications, both prescribed and OTC were reviewed and reconciled on the electronic medical record. Tobacco screening was accomplished and smoking cessation was advised when indicated. BMI was noted and diet/exercise modification was recommended for all patients following outside normal parameters. [address] [address] PAIN MANAGEMENT CONSULTATION Name: VERONICA DOUGLAS Room #: REG GEOVANI Ibrahim.Osvaldo.#: [id number] Admission: 07/02/20 Attend Phys: Cici Richter Discharge: Date of : 69 Report #: [id number] I reviewed with the patient today their responsibilities to safeguard prescription medications, reviewed their responsibility to utilize medications only as prescribed by the physician. They are to seek and receive pain medications only from 1 physician group ( [facility]). They are to use 1 pharmacy and keep the clinic informed if they change pharmacies. Their responsibilities include making followup visits in a timely fashion and to avoid abrupt discontinuation of medication usage. Their responsibilities further include bringing their medications (bottles from the pharmacy with residual pills) to the visit for possible confirmation of pill counts and the patient understands it is their responsibility to submit to random drug screens to ensure both that the medications prescribed are present, and that no other controlled substances are present. All prescriptions provided today were generated electronically. PLAN: 1. We discussed treatment options with the patient today. The patient continues to have issues with her depression. We had discussed this at her last visit. The patient has been in the past on 80 mg of Prozac. I think it is beneficial to see if she has less issue if we raise her Prozac to 40 mg for a few months and see if her depression subsides with our plan to have a temporary increase and decrease back to 20 mg when she is able. The patient verbalizes understanding. Scripts will be sent for Prozac 40 mg, #90 with 1 refill. 2. We will continue her on her methadone 10 mg tablets once a day as well as her hydromorphone 4 mg tablets once a day, 3 months of each of these medicines will be sent electronically by Dr. Pranav Wilkinson. He will also send her Ambien 10 mg, #90. The patient has been using her [facility] script for these medications and found that some of her medications that is cheaper than her previous insurance cost. 3. 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 The patient is seen today in collaboration with Dr. Pranav Wilkinson. The patient will return in 3 months and hopefully, she will have insurance at that time. <ELECTRONICALLY SIGNED> By: Cici Richter 07/06/20 0722 [id number] Cici Richter /nt
== END ==
LOC: PAIN 07:02
PROVIDERS: ATTEND Clinical Nurse Specialist Adult Health
DX: M79.642 Pain in left hand (principal); F32.9 Major depressive disorder, single episode, unspecified; M19.90 Unspecified osteoarthritis, unspecified site; F11.20 Opioid dependence, uncomplicated; Z88.8 Allergy status to other drugs, medicaments and biological substances; Z79.899 Other long term (current) drug therapy

== ENCOUNTER → 2020-10-08 | Outpatient (CLI) | payer OTHER ==
[~2020-10-08] VITALS: Ht 167.6 cm; Wt 114.1 kg
[~2020-10-08] MED LIST changes: +COLLAGEN PLUS1 EACH PO
--- NOTE | ~2020-10-08 | HPC ---
[facility] [place] [address] PAIN MANAGEMENT CONSULTATION Name: VERONICA DOUGLAS Room #: REG GE[facility]ANI M.Osvaldo.#: [id number] Admission: 10/08/20 Attend Phys: Cici Richter Discharge: Date of : 69 Report #: [id number] THIS REPORT FOR: cc: Zohaib Araiza MD, Michael S. MD Hocker,Cici SIMMONS ~ DATE OF SERVICE: 10/08/2020 CHIEF COMPLAINT: Complex regional pain syndrome, left upper extremity. HISTORY OF PRESENT ILLNESS: This is a pleasant 55-year-old female who returns to the pain clinic today for renewal of her opioid medications. She is a longstanding patient of Dr. Wilkinson's who we have performed several sympathetic blocks as well as lidocaine infusions over the years that she has gained some benefit from. Most recently, she has been stable on methadone 10 mg tablets once a day as well as occasional Dilaudid. Today, she is rating her pain a 6/10 due to unfortunately being out of her medications for the past few days due to the holiday and closure of the clinic. The patient's left arm, hand and fingers are affected from her complex regional pain syndrome. She describes it as a burning, shooting pain that is worse with colder weather as well as rainy weather, which has increased her pain in the last few days. The patient feels when she is taking her medications appropriately, her pain is much decreased as well as using occasional heat. She denies any problems with constipation or daytime somnolence as a result of her medications. At her last appointment in July, the patient was suffering increased depression, which she has battled for several years. She at that time was taking Prozac 20 mg and we increased it to 40 mg. The patient feels that, that increase has been quite beneficial and would like to continue at that current dose. ALLERGIES: SERTRALINE. CURRENT LIST OF MEDICATIONS: Collagen, Prozac 40 mg, Ambien 10 mg p.r.n., methadone 10 mg daily, hydromorphone 4 mg daily and multivitamin. PQRS: 1. She has osteoarthritic changes in her hands and spine. Denies any rheumatoid arthritis. 2. Height is 5 feet 6 inches, weight is 251. BMI is 40. 3. Vital signs; blood pressure 112/70, pulse is 74, respirations 20, oxygen sat is 98%. 4. Pain score 6/10. 5. Denies dizziness, does not need help walking or standing, has not fallen in [address] [address] PAIN MANAGEMENT CONSULTATION Name: VERONICA DOUGLAS Room #: REG [facility].#: [id number] Admission: 10/08/20 Attend Phys: Cici Richter Discharge: Date of : 69 Report #: [id number] the last 3 months. 6. The patient is not on any blood thinners or medications for hypertension. 7. Opiate therapy is greater than 6 weeks; therefore, an opioid signed contract is on the chart. Risk assessment is low. Functional assessment is 36/70. 8. Recreational drug use, she denies. She is not a smoker and occasionally drinks alcohol. According to the prescription monitoring system, she is filling appropriately and is past due by few days for her medication refills; therefore, she has been without her medication for the past few days. Her morphine milliequivalent is 46 MME per day. PHYSICAL EXAMINATION: GENERAL: This is alert and orientated 55-year-old who appears her stated age, placing her current pain score at 6/10 today. She is a good historian. HEENT: Normocephalic, atraumatic. Extraocular eye muscles are intact. Speech is fluent. She is wearing a mask. MUSCULOSKELETAL: Left upper extremity reveals some allodynia in her forearm and hand with slight discoloration in her fingers. Her upper extremity strength though is symmetrical at 5/5. IMPRESSION: 1. Chronic regional pain syndrome of her left upper extremity. 2. Depression. 3. History of osteoarthritis, status post arthroscopy of the left knee. 4. Management of high risk medications under terms of written opioid agreement. PLAN: 1. We discussed treatment options with the patient today. The patient feels that the increase in Prozac was beneficial in helping her mood. She feels less depressed and would like to continue on her current dose of 40 mg. There are plenty of refills at the pharmacy, so we will not send this electronically today. 2. We will continue her on her methadone 10 mg once a day, quantity 30 sent for today, 4 and 8-week supply by Dr. Pranav Wilkinson as well as her hydromorphone 4 mg, #30. Again for 3 months. 3. We did discuss Ambien. She takes 5-10 mg on a nightly basis. I have encouraged her to try to decrease this to 5 mg every night and our goal is to hopefully wean off that medication that she has been using for sleep. The patient will attempt to decrease to 5 mg every night or as needed through the next 3 months. 4. The patient is seen in collaboration with Dr. Pranav Wilkinson. By: 0951 Steve Richter /avila
[2020-10-08 08:53] VITALS: BP 112/77
--- NOTE | 2020-10-08 09:03 | NUR ---
Pain Clinic Assessment: 1. History of Osteoarthritis: SPINE hands History of Rheumatoid Arthritis: NONE 2. Height: 5 ft. 6 in. 167.6 cm. Weight: 251.6 lb. oz. 114.125 kg. Patient's BMI: 40.6 3. Vital Signs: BP: 112/77 Pulse: 74 Resp: 20 Temp: 02 Sat: 98 ECG Mon: 4. Pain Intensity: 6 5. Fall Risk: Dizziness: N Needs help standing or walking: N Fallen in the last 3 months: N Fall risk comments: 6. Patient on Blood Thinner: None 7. History of Hypertension: N 8. Opioid Therapy greater than 6 weeks: Y Opiate Contract Signed: 02/06/17 9. Risk Assessment Tool Provided: LOW 10. Functional Assessment Tool: 11. Recreational Drug Use: Never Drug Type: Tobacco Use: Never Smoker Tobacco Type: Amount or Packs/day: How Many Years: Alcohol Use: Yes Frequency: Special Occasions Quant:
== END ==
LOC: PAIN 06:37
PROVIDERS: ATTEND Clinical Nurse Specialist Adult Health
DX: G89.4 Chronic pain syndrome (principal); M79.602 Pain in left arm; F32.9 Major depressive disorder, single episode, unspecified; Z79.891 Long term (current) use of opiate analgesic

== ENCOUNTER → 2021-01-04 | Outpatient (CLI) | payer OTHER ==
[~2021-01-04] VITALS: Ht 167.6 cm; Wt 115.7 kg
[2021-01-04 09:26] VITALS: BP 108/70
--- NOTE | 2021-01-04 09:42 | NUR ---
Pain Clinic Assessment: 1. History of Osteoarthritis: SPINE hands History of Rheumatoid Arthritis: NONE 2. Height: 5 ft. 6 in. 167.6 cm. Weight: 255.0 lb. oz. 115.668 kg. Patient's BMI: 41.2 3. Vital Signs: BP: 108/70 Pulse: 71 Resp: 16 Temp: 02 Sat: 96 ECG Mon: 4. Pain Intensity: 3-4 5. Fall Risk: Dizziness: N Needs help standing or walking: N Fallen in the last 3 months: N Fall risk comments: 6. Patient on Blood Thinner: None 7. History of Hypertension: N 8. Opioid Therapy greater than 6 weeks: Y Opiate Contract Signed: 02/06/17 9. Risk Assessment Tool Provided: LOW-1 10. Functional Assessment Tool: 11. Recreational Drug Use: Never Drug Type: Tobacco Use: Never Smoker Tobacco Type: Amount or Packs/day: How Many Years: Alcohol Use: Yes Frequency: Special Occasions Quant:
--- NOTE | 2021-01-06 11:59 | HPC ---
[facility] [place] [address] [place] [address] PAIN MANAGEMENT CONSULTATION Name: VERONICA DOUGLAS Room #: REG GEOVANI Calvin.#: [id number] Admission: 01/04/21 Attend Phys: Cici Richter Discharge: Date of : 69 Report #: [id number] THIS REPORT FOR: cc: Zohaib Araiza MD, Michael S. MD Hocker,Cici SIMMONS ~ DATE OF SERVICE: 01/04/2021 CHIEF COMPLAINT: Complex regional pain syndrome, left upper extremity. HISTORY OF PRESENT ILLNESS: This is a pleasant 55-year-old female who returns to the clinic today for renewal of her opioid medications. Today, she is reporting a pain score of 3-4. She states that it is well controlled currently. In November when we had a severe cold weather, she reported needing to take extra pain pills of her Dilaudid. She was able to do this without running out of medications now since there are days that she does not require her breakthrough pain pills. Her most severe pain is in her left arm and in her neck. It is a burning, shooting sensation. Overall, she believes the medications at this low dose have been beneficial as well as utilizing heat. The patient is tearful through some of her visit today. Her again is in the process of looking for another job. She had finally had insurance through his new company and now starting all over again today. 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 ALLERGIES: ZOLOFT AND MACADAMIA NUT OIL. CURRENT MEDICATIONS: Ambien 10 mg p.r.n., methadone 10 mg daily, hydromorphone 4 mg daily p.r.n., collagen, Prozac and multivitamin. PQRS: 1. She has osteoarthritic changes in her spine. Denies any rheumatoid arthritis. 2. Height is 5 feet 6 inches, weight is 255, BMI is 41. 3. Vital signs 108/70, pulse is 71, respirations 16, oxygen sat is 96%. 4. Pain score is 3-4. 5. Denies dizziness, does not need help walking or standing, has not fallen in the last 3 months. 6. The patient is not on any blood thinners or medicine for hypertension. 7. Opioid therapy is greater than 6 weeks; therefore, an opioid signed contract is on the chart. Risk assessment is low. Functional assessment is . 8. Recreational drug use, she denies. She is not a smoker and occasionally drinks alcohol. According to the prescription monitoring system, she is filling appropriately. She is due to fill her medications this week. Her morphine mEq is less than [address] [address] PAIN MANAGEMENT CONSULTATION Name: VERONICA DOUGLAS Room #: REG GEOVANI Gill#: [id number] Admission: 01/04/21 Attend Phys: Cici Richter Discharge: Date of : 69 Report #: [id number] MMEs per day; therefore, she is seen every 3 months in our clinic. There is a UDS on our chart and we will collect a random one in the near future. PHYSICAL EXAMINATION: GENERAL: This is alert and orientated, tearful 55-year-old who appears her stated age, rating her pain score today 2-3. HEENT: Normocephalic, atraumatic. Extraocular eye muscles are intact. She is wearing a mask. MUSCULOSKELETAL: Her upper extremity reveals some allodynia in her left forearm and hand. Her upper extremity strength is symmetrical at 5/5. She holds her left arm in a guarded position. IMPRESSION: 1. Chronic complex regional pain, type 1, left upper extremity. 2. History of osteoarthritis in the left knee, status post arthroplasty. 3. Management of high risk medications under written opioid agreement. 4. Depression. We reviewed the fact that opiate medications are being used to provide analgesia adequate to support activities of daily living, not attempting to achieve a specific pain score on the 0-10 Visual Analog Scale. The current opiate medications are providing sufficient analgesia to allow the patient to participate in activities of daily living. The patient is not exhibiting any aberrant behavior suggestive of drug diversion. The patient is not having any adverse reactions to medications. The patient is not suffering from daytime somnolence or mental acuity changes. The patient is managing opiate-induced constipation with appropriate [id number] agents and dietary considerations. The patient was counseled on concern for caution with operating a motor vehicle while using opiate medications. A physical exam was performed and the patient's functional status was evaluated. All patients with back pain were advised against the bed rest greater than 4 days and were advised to return to normal activities. Pain score assessment was noted and the treatment plan was reviewed with the patient. All current medications, both prescribed and OTC were reviewed and reconciled on the electronic medical record. Tobacco screening was accomplished and smoking cessation was advised when indicated. BMI was noted and diet/exercise modification was recommended for all patients following outside normal parameters. I reviewed with the patient today their responsibilities to safeguard prescription medications, reviewed their responsibility to utilize medications only as prescribed by the physician. They are to seek and receive pain medications only from 1 physician group ([facility]). They are to use 1 pharmacy and keep the clinic informed if they change pharmacies. Their responsibilities include making followup visits in a timely fashion and to avoid [address] [address] PAIN MANAGEMENT CONSULTATION Name: VERONICA DOUGLAS Room #: REG [facility]..#: [id number] Admission: 01/04/21 Attend Phys: Cici Richter Discharge: Date of : 69 Report #: [id number] abrupt discontinuation of medication usage. Their responsibilities further include bringing their medications (bottles from the pharmacy with residual pills) to the visit for possible confirmation of pill counts and the patient understands it is their responsibility to submit to random drug screens to ensure both that the medications prescribed are present, and that no other controlled substances are present. All prescriptions provided today were generated electronically. PLAN: 1. We discussed treatment options with the patient today. We had increased her Prozac several months ago due to some depression issues she was having dealing with family, changes at home. We would like to decrease this as possible, but again she is here in tears today due to family issues. We will continue her on her Prozac 40 mg tablets for now. 2. The patient was able to decrease some of her Ambien. Dr. Pranav Wilkinson had encouraged her to not rely on that every night for sleep. The patient has been utilizing it 2-3 times a day. We will decrease the strength to 5 mg this visit and allow her 60 tablets in the next 3 months. She will continue to try and wean off this medication. 3. We will continue her methadone 10 mg tablets, #30, for today for an 8-week release as well as her hydromorphone 4 mg, #30, again for a 3-month supply. 4. At this time, the patient is not having the COVID vaccine, which we discussed. She is in a very well controlled environment with limited exposure to outside people. Time spent in consultation, reviewing recent studies and clinical notes and physician reports, physical examination and correlation of physical findings of medical documentation to determine treatments 14 minutes. Time spent in preparation for appointment reviewing prescription monitoring reports, reviewing previous records and treatment options and reviewing current medication list 5 minutes. Time spent with preparing and sending electronic prescriptions with collaborating physician, Dr. Pranav Wilkinson and documentation of visit and plan of treatment 8 minutes. Total time spent 25 minutes. <ELECTRONICALLY SIGNED> By: Cici Richter 01/06/21 [id number] Cici Richter /nt
== END ==
LOC: PAIN 07:31
PROVIDERS: ATTEND Clinical Nurse Specialist Adult Health
DX: G89.4 Chronic pain syndrome (principal); F32.9 Major depressive disorder, single episode, unspecified; Z96.652 Presence of left artificial knee joint; Z79.891 Long term (current) use of opiate analgesic

== ENCOUNTER → 2021-04-01 | Outpatient (CLI) | payer OTHER ==
[~2021-04-01] VITALS: Ht 167.6 cm; Wt 116.4 kg
[~2021-04-01] MED LIST changes: +ADVIL200 M3 PO; +FLUOXETINE HCL40 MG PO; +MOBIC7.5 MG PO; +TYLENOL EXTRA500 MG PO
[2021-04-01 10:11] VITALS: BP 132/75
--- NOTE | 2021-04-01 10:19 | NUR ---
Pain Clinic Assessment: 1. History of Osteoarthritis: SPINE hands History of Rheumatoid Arthritis: NONE 2. Height: 5 ft. 6 in. 167.6 cm. Weight: 256.6 lb. oz. 116.393 kg. Patient's BMI: 41.4 3. Vital Signs: BP: 132/75 Pulse: 70 Resp: 18 Temp: 02 Sat: 97 ECG Mon: 4. Pain Intensity: 5-6 (no meds yet today) 5. Fall Risk: Dizziness: N Needs help standing or walking: N Fallen in the last 3 months: N Fall risk comments: NO CONCERNS NOTED 6. Patient on Blood Thinner: None 7. History of Hypertension: N 8. Opioid Therapy greater than 6 weeks: Y Opiate Contract Signed: 02/06/17 9. Risk Assessment Tool Provided: LOW-1 10. Functional Assessment Tool: 11. Recreational Drug Use: Never Drug Type: Tobacco Use: Never Smoker Tobacco Type: Amount or Packs/day: How Many Years: Alcohol Use: Yes Frequency: Special Occasions Quant: 1 DRINK
== END ==
LOC: PAIN 06:58
PROVIDERS: ATTEND Clinical Nurse Specialist Adult Health
DX: M79.622 Pain in left upper arm (principal); G89.4 Chronic pain syndrome; M17.11 Unilateral primary osteoarthritis, right knee; F32.9 Major depressive disorder, single episode, unspecified; Z72.89 Other problems related to lifestyle; Z79.891 Long term (current) use of opiate analgesic; Z79.899 Other long term (current) drug therapy

== ENCOUNTER → 2021-07-08 | Outpatient (CLI) | payer OTHER ==
[~2021-07-08] VITALS: Ht 167.6 cm; Wt 115.2 kg
[2021-07-08 09:04] VITALS: BP 121/66
--- NOTE | 2021-07-08 09:08 | NUR ---
Pain Clinic Assessment: 1. History of Osteoarthritis: SPINE hands History of Rheumatoid Arthritis: NONE 2. Height: 5 ft. 6 in. 167.6 cm. Weight: 254.0 lb. oz. 115.214 kg. Patient's BMI: 41.0 3. Vital Signs: BP: 121/66 Pulse: 69 Resp: 16 Temp: 02 Sat: 98 ECG Mon: 4. Pain Intensity: 7 5. Fall Risk: Dizziness: N Needs help standing or walking: N Fallen in the last 3 months: N Fall risk comments: NO CONCERNS NOTED 6. Patient on Blood Thinner: None 7. History of Hypertension: N 8. Opioid Therapy greater than 6 weeks: Y Opiate Contract Signed: 02/06/17 9. Risk Assessment Tool Provided: LOW-1 10. Functional Assessment Tool: 11. Recreational Drug Use: Never Drug Type: Tobacco Use: Never Smoker Tobacco Type: Amount or Packs/day: How Many Years: Alcohol Use: Yes Frequency: Monthly Quant: 1
== END ==
LOC: PAIN 06:50
PROVIDERS: ATTEND Clinical Nurse Specialist Adult Health
DX: G89.4 Chronic pain syndrome (principal); M19.90 Unspecified osteoarthritis, unspecified site; F32.9 Major depressive disorder, single episode, unspecified; Z79.891 Long term (current) use of opiate analgesic; Z79.899 Other long term (current) drug therapy

== ENCOUNTER → 2021-10-14 | Outpatient (CLI) | payer BC ==
[~2021-10-14] VITALS: Ht 167.6 cm; Wt 115.1 kg
[2021-10-14 10:00] VITALS: BP 111/71
--- NOTE | 2021-10-14 10:15 | NUR ---
Pain Clinic Assessment: 1. History of Osteoarthritis: SPINE hands History of Rheumatoid Arthritis: NONE 2. Height: 5 ft. 6 in. 167.6 cm. Weight: 253.8 lb. oz. 115.123 kg. Patient's BMI: 41.0 3. Vital Signs: BP: 111/71 Pulse: 75 Resp: 16 Temp: 02 Sat: 97 ECG Mon: 4. Pain Intensity: 5-6 5. Fall Risk: Dizziness: N Needs help standing or walking: N Fallen in the last 3 months: N Fall risk comments: NO CONCERNS NOTED 6. Patient on Blood Thinner: None 7. History of Hypertension: N 8. Opioid Therapy greater than 6 weeks: Y Opiate Contract Signed: 02/06/17 9. Risk Assessment Tool Provided: LOW-1 10. Functional Assessment Tool: 11. Recreational Drug Use: Never Drug Type: Tobacco Use: Never Smoker Tobacco Type: Amount or Packs/day: How Many Years: Alcohol Use: Yes Frequency: Special Occasions Quant:
== END ==
LOC: PAIN 08:51
PROVIDERS: ATTEND Clinical Nurse Specialist Adult Health
DX: G89.4 Chronic pain syndrome (principal); M17.0 Bilateral primary osteoarthritis of knee; M19.011 Primary osteoarthritis, right shoulder; M19.012 Primary osteoarthritis, left shoulder; M19.042 Primary osteoarthritis, left hand; M19.041 Primary osteoarthritis, right hand; F34.89 Other specified persistent mood disorders; Z88.8 Allergy status to other drugs, medicaments and biological substances; Z79.899 Other long term (current) drug therapy